=== PATIENT | male | born 1980 | race Two or more races ===

== ENCOUNTER 2024-01-23 17:27 | Emergency (ER) | payer BC ==
[~2024-01-23] VITALS: Ht 170.2 cm; Wt 61.2 kg
[2024-01-23 18:01] VITALS: BP 125/89; TEMP 97.9
[2024-01-23 18:31] VITALS: O2SAT 98
== END 2024-01-23 18:32 | disposition home or self-care (01) ==
LOC: ER 17:27
DX: S01.512A Laceration without foreign body of oral cavity, initial encounter (principal); X58.XXXA Exposure to other specified factors, initial encounter; Y93.89 Activity, other specified; Y92.89 Other specified places as the place of occurrence of the external cause; Y99.8 Other external cause status